=== PATIENT | female | born 1970 | race Caucasian/White ===

== ENCOUNTER → 2018-06-06 16:55 | Outpatient (CLI) | payer OTHER, SELFPAY ==
--- NOTE | 2018-06-06 17:05 | MRI_ITS ---
STUDY: MRI RIGHT FOREFOOT WITHOUT CONTRAST REASON FOR EXAM: Female, 48 years old. 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 Arthritis third MTP joint. Capsulitis. Evaluate third metatarsal. TECHNIQUE: Standardized fat and water weighted pulse sequences were obtained in all 3 orthogonal planes. COMPARISON: None. FINDINGS: There is a small joint effusion, otherwise negative metatarsophalangeal joint of the hallux. There is lateral subluxation of the sesamoids. The intersesamoid ligament is intact. Normal interphalangeal joint of the hallux. Normal proximal and distal phalanges of the great toe. Normal medial and lateral heads of the flexor hallucis brevis tendons. Normal flexor and extensor hallucis longus tendons. Intact Lisfranc ligament. There is a small joint effusion at the second metatarsophalangeal joint. There is abnormal signal and deformity of the third metatarsal head consistent with clinical history of avascular necrosis. The base of the third proximal phalanx is intact. There is no joint effusion. There is thickening of the medial and lateral ligaments. There is mild soft tissue signal intensity within the joint capsule. Metatarsals are otherwise unremarkable. Normal interphalangeal joints of the second through fifth toes. Normal proximal, middle and distal phalanges of the second through fifth toes. Normal first through fourth intermetatarsal spaces. Normal flexor and extensor tendons of the second through fifth toes. Normal intrinsic muscles of the forefoot. There is no demonstrated soft tissue abnormality. MRI/Lower Ext/No Jt/w/o IMPRESSION: Avascular necrosis of the third metatarsal head, with thickened ligaments and mild soft tissue within the joint capsule. Lateral subluxation of the sesamoid bones. Small effusions of the first and second MTP joints. Electronically Signed: Lexii Rae MD at 23:48 EST Tel , Service support ,
== END ==
PROVIDERS: Referring Provider Podiatrist; Visit Provider Podiatrist
DX: M79.671 Pain in right foot (principal); M92.71 Juvenile osteochondrosis of metatarsus, right foot; M87.9 Osteonecrosis, unspecified; M19.071 Primary osteoarthritis, right ankle and foot; M77.51 Other enthesopathy of right foot and ankle
CPT/HCPCS: 73718

== ENCOUNTER 2018-08-20 12:15 | Emergency (ER) | payer OTHER, SELFPAY ==
[2018-08-20 12:16] VITALS: BP 118/75; PULSE 83; RESP 18; TEMP 37.3; O2SAT 100; BMI 18.2
--- NOTE | 2018-08-20 12:48 | RAD_ITS ---
STUDY: X-RAY - RIGHT WRIST REASON FOR EXAM: Female, 48 years old. Fall TECHNIQUE: 3 view(s) of the wrist were obtained. COMPARISON: None. FINDINGS: There is no evidence of fracture or dislocation. There are no significant degenerative changes. There are no radiodense foreign bodies. RAD/Wrist min 3 Views IMPRESSION: No fracture or dislocation. Electronically Signed: Kimani Villanueva, at 13:16 EST Tel , Service support ,
--- NOTE | 2018-08-20 12:49 | ED.VISSUMM ---
- ER Visit Summary Date of Service: 08/20/18 Chief Complaint: Right wrist injury History of Present Illness: The patient is a 48 F right wrist injury 845 this morning while walking. Tripped over wires on the ground. No head injuries. 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 Has had fracture of the hand with no surgical intervention in the past followed by [facility] orthopedics. No deformities. There is abrasions to her palms and her right knee. Tetanus in the last 5 years. No head injuries. Able to ambulate. Physical Examination: General: Alert and oriented ?3, no acute distress HEENT: Normocephalic, atraumatic. Moist mucosa membranes Neck: supple, nontender. Cardiovascular: Regular rate and rhythm, no murmurs Respiratory: Normal breath sounds, symmetric, no distress Abdomen: Soft, nontender, nondistended Extremities: Nontender, no edema, pulses intact ?4. Right upper extremity: No deformities of the elbow forearm wrist or hand. Abrasions to bilateral palm and right knee. Neuro: no focal neurological deficits. Test Results: Right wrist x-ray: Negative Emergency Department Course and Treatment: Patient with no pain symptoms due to her congenital condition. There is no deformities, however due to injuries with fractures in the past x-ray obtained shows no acute fractures. Discussed contusion rice therapy. Monitor symptoms and follow-up with her PCP. All questions were answered. Treatment Plan: [] Disposition: Discharge Impression: 1. Right hand contusion 2. Abrasions This note was generated with Zuvvu dictation software. It may contain incorrect words, spelling, and punctuation that were not noted in review of the chart prior to signing ED Disposition - Plan for ED Patient: Disposition: Home or Assisted Living Diagnosis: Contusion of right hand, Multiple abrasions Instructions: ED Contusion Hand, ED Abrasion Referrals: [facility] Doctor,Out of [Primary Care Provider] - 5-7 Days
[2018-08-20 14:19] VITALS: PULSE 58; RESP 18; O2SAT 98; O2SAT 99
== END 2018-08-20 14:20 | disposition home or self-care (01) ==
PROVIDERS: Emergency Provider Emergency Medicine
DX: S60.221A Contusion of right hand, initial encounter (principal); S60.512A Abrasion of left hand, initial encounter; S60.511A Abrasion of right hand, initial encounter; S80.211A Abrasion, right knee, initial encounter; W18.09XA Striking against other object with subsequent fall, initial encounter; Y93.01 Activity, walking, marching and hiking; Y92.9 Unspecified place or not applicable; Y99.9 Unspecified external cause status
CPT/HCPCS: 73110; 99282; A4216

== ENCOUNTER → 2018-12-05 13:59 | Outpatient (CLI) | payer OTHER, SELFPAY ==
[2018-12-05 15:41] LABS: Absolute Lymphocyte Count 1.89 X10^3/ul (0.83-4.51); Basophil# 0.02 X10^3/uL; Basophil% 0.5 % (0-1); Eosinophil# 0.04 X10^3/uL; Eosinophils% 0.9 % (0-5); Hematocrit 41.9 % (37-47); Hemoglobin 13.6 g/dl (12.0-15.0); Lymphocyte # 1.89 X10^3/ul (4.0); Lymphocyte % 44.2 % (19-41); Mean Corp Hgb Conc 32.5 g/gl (32-36); Mean Corpuscular Hgb 28.6 pg (27.0-32.0); Mean Platelet Vol. 10.2 fl (6.2-12.0); Monocyte# 0.28 X10^3/uL; Monocyte% 6.5 % (0-10); Neutrophil # 2.04 X10^3/uL (2.7-7.7); Neutrophil % 47.7 % (47-70); Platelet Count 261 K/mm3 (150-450); RBC Distribution Width CV 14.1 % (11.6-14.6); RBC Distribution Width SD 45.4 fl (35.1-43.9); Red Blood Count 4.76 M/mm3 (4.2-5.4); White Blood Count 4.3 K/mm3 (4.4-11.0)
[2018-12-05 15:49] LABS: POSITIVE COUNT NO; POSITIVE DIFFERENTIAL NO; POSITIVE MORPHOLOGY NO
[2018-12-05 15:59] LABS: ALB/GLOB Ratio 1.3 RATIO (0.9-2.4); AST(SGOT) 26 U/L (15-37); Alanine Aminotransfer ALT/SGPT 34 U/L (13-56); Alkaline Phosphatase 51 U/L (45-117); Anion Gap 5 (5-15); BUN 10 mg/dL (7-18); Calcium,Total 8.8 mg/dL (8.5-10.1); Chloride 105 mmol/L (98-107); Creatinine, Serum 0.62 mg/dL (0.55-1.02); EST Glomerular Filtration Rate 108 mL/min (>60); Est Glom Filt Rate - Afr Amer 131 mL/min (>60); Glucose 82 mg/dL (74-106); Potassium 3.6 mmol/L (3.5-5.1); Sodium Level 139 mmol/L (136-145)
== END ==
PROVIDERS: Visit Provider Family Medicine
DX: Z01.818 Encounter for other preprocedural examination (principal)
CPT/HCPCS: 36415; 80053; 85025

== ENCOUNTER 2018-12-23 06:07 | Day surgery (SDC) | payer OTHER, SELFPAY ==
[2018-12-23] VITALS (7 sets, daily range): BP systolic 82–98; BP diastolic 55–73; PULSE 51–68; RESP 12–18; TEMP 36.1–36.6; O2SAT 48–100; BMI 18.9
[2018-12-23 06:47] LABS: Internal QC Validated? YES +Cl - CLEAR BKGD
[2018-12-23 06:48] LABS: Pregnancy, Urine Negative Negative
--- NOTE | 2018-12-23 07:45 | RAD_ITS ---
STUDY: X-RAY - RIGHT FOOT CLINICAL: Female, 48 years old. Resection of the third metatarsal head. TECHNIQUE: 5 on down intraoperative view(s) of the foot. COMPARISON: None. FINDINGS: Intraoperative imaging provided for resection of the head of the distal portion of the third metatarsal. A percutaneous pin is inserted at the third metatarsophalangeal joint. RAD/Foot min 3 Views IMPRESSION: Intraoperative imaging provided for resection of the third metatarsal head as well as percutaneous pinning of the third metatarsophalangeal joint. Electronically Signed: Tank Ramírez, at 12:27 EDT , Service support ,
[2018-12-23] MEDS: Cefazolin 2 GM in 0.9% Normal Saline 100 ML IV (07:47)
--- NOTE | 2018-12-23 08:00 | BON_PTH ---
PATIENT: LIZZETTE MIRANDA LOC: [facility] U#:[id number] AGE/SX: 48/F ROOM: RE12/23/[address]: Dr. Lashay Kapoor DPM : 1970 BED: DIS: 12/23/2018 SPEC #: [id number] RECD: 12/23/18 10:59 STATUS: SUSANAlfreda LINDSAY #: [id number] ESTRELLA: 12/23/18 08:[address]: Lashay Kapoor DEPT: SURGICAL PATHOLOGY RECD BY: Jennifer Del Angel Tissues: Bone of foot, NOS Procedures: Decalcification bone/plaque Surgery Specimen Level IV HEADER OPERATION: Third metatarsal head resection PRE-OP DIAGNOSIS: Metatarsal head avascular necrosis TISSUE SUBMITTED: Third metatarsal head MICROSCOPIC DIAGNOSIS Third metatarsal head, resection: A piece of bone with reactive changes. SJ:esha 12/28/18 COMMENT Case has been reviewed in consultation with Dr. Cummings who concurs with the above diagnosis. IDC:AM MICROSCOPIC DESCRIPTION Slides are reviewed. GROSS DESCRIPTION Received in fixative is one container labeled with the patient's name and designated third metatarsal head. The specimen consists of a piece of bone measuring 2 x 1.5 x 1 cm. The specimen is bisected and submitted entirely in one cassette after decalcification. / SJ:rg 12/23/18 TC:5 [facility]: [id number], [id number]
[2018-12-23] MEDS: Bupivacaine 0.5% PF 10 ML VIAL (08:04)
--- NOTE | 2018-12-23 09:23 | DCINST_ITS ---
Weight Bearing Status: No weight bearing - use crutches and surgical shoe right foot Keep extremity elevated above heart level: Right Leg Call your doctor if your incision/area has: Continuous Slow Oozing, Sudden Increased Bleeding, Increased Pain/ Swelling, Increased Redness, Foul Smelling Discharge, Swelling at the incision site Call your doctor if you observe: Fever of 101 or Higher, Numbness or Tingling, Swelling in the ankles, Calf discomfort, Uncontrolled pain Cleanse incision/area with: Keep Dressing Clean & Dry Allergies/Adverse Reactions: Allergies latex Allergy (Verified 12/16/18 13:41) Rash ciprofloxacin Adverse Reaction (Verified 12/16/18 13:41) Other WILL NOT TAKE D/T RUNNING/ATHLETE hydromorphone [From Dilaudid] Adverse Reaction (Verified 12/16/18 13:41) Vomiting Medications to take at Discharge Meloxicam [Mobic] 7.5 mg PO DAILY PRN 08/20/18 Ascorbic Acid [Vitamin C] 1,000 mg PO BID 12/16/18 Methylsulfonylmethane [MSM] 1,000 mg PO DAILY 12/16/18 Mv-Min/Iron/Folic/Calcium/Vitk [Women's Multivitamin Tablet] 1 ea PO DAILY 12/16/18 Turmeric Root Extract [Turmeric] 500 mg PO BID 12/16/18 Ubidecarenone [Coq-10] 200 mg PO DAILY 12/16/18 Vitamin B Complex [Complex B-100] 1 ea PO DAILY 12/16/18 Test Results: Test results from this visit will be discussed in further detail at your follow- up appointment, if applicable. Please Follow Up With: Lashay Kapoor DPM When: next [facility] Call [phone] sooner if concerns. Proposed Discharge Date: 12/23/18
--- NOTE | 2018-12-23 09:26 | OP.PCM_ITS ---
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 Arthritis right third metatarsal phalangeal joint. Post-Operative Diagnosis: Avascular necrosis of right third metatarsal head. Arthritis right third metatarsal phalangeal joint Surgery/Procedure Performed:: Third partial metatarsal head resection right foot with interpositional extensor apparatus placement Description of Surgical Findings:: Hemostasis: Well-padded pneumatic right ankle tourniquet, 22 minutes Materials: 2-0 Vicryl, 4-0 Monocryl, 5-0 nylon, one 0.045 K wire Complications: None The patient tolerated the procedure and anesthesia well. She was transported to the PACU with vital signs stable and vascular status intact the right lower extremity. She will be discharged home upon continued stability. Postoperative orders were entered electronically. outboard technician: none - Wired Music Operator: Izabela [email or web address]. Surgeon: Lashay Kapoor DPM Type of Anesthesia:: Local MAC - Preoperative injection: 10 cc of one-to-one mixture of 1% lidocaine plain and 0.5% Marcaine plain administering typical third ray block fashion of the right foot Specimen's removed: Third metatarsal head sent to pathology. Third metatarsal head sent to microbiology for aerobic, anaerobic, acid-fast, fungal Estimated Blood Loss (mL): < 50mL Description of Procedure: Indications: This is a 48-year-old female with history of avascular necrosis to her hip and wrist who was seen at the [facility] center for ongoing right foot pain, continues to have stiffness and discomfort. 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 She feels like she is walking on a firm marble and this changes her running pattern. She has tried conservative care including splinting, change in shoe gear, activity modification, rest, bone st imulator, and padding. X-rays demonstrate advanced flattening and degenerative changes and spurring to the third metatarsal phalangeal joint. MRI evaluation demonstrates decreased intensity on the T1 and T2 to most of the third metatarsal head. There is some edema noted around this area and there is also a crescent sign consistent with avascular necrosis. There are no associated other acute injuries at this location. She has decreased passive range of motion to the third metatarsal phalangeal joint and her pain is noted during running activities or prolonged standing. It is also noted she does have a chronic pain syndrome where she does not experience normal pain sensation. She typically experiences pain with nausea and vomiting. This makes it challenging for her to evaluate the status of her foot condition while training. The preoperative indication, planned procedure, possible benefits, risks, comp occasions, anticipated healing time and were discussed in detail with the shen jorgensen. She understands and elects to proceed with surgery at this time. No guarantees are made. She understands complications and risks include but are not limited to the following: Pain, swelling, scarring, floating toe, retraction of need for further surgery, loss of sensation, chronic pain, blood clot, allergic reaction, loss of limb, function, life. I answered her questions. The surgical limb and consent were signed. Procedure in detail: The patient was transferred to the operating room via cart and placed on the operating table in the supine position. Final verification of the patient, surgery, limb designation was performed via the timeout procedure. Anesthesia was initiated by the anesthesia team. Local anesthetic was administered by the podiatry team. A well-padded pneumatic right ankle tourniquet was placed. Preoperative antibiotics were administered according to standard protocol. Right lower extremity is prepped and draped in the usual aseptic manner. Exsanguination was performed with an Esmarch bandage and the tourniquet was inflated at this time. Surgery began following manner: Attention was first directed to the dorsal third right metatarsophalangeal joint level in which a curvilinear incision was made through the skin. Blunt dissection was next performed down to the third metatarsal phalangeal joint taking care to identify, protect, and retract all neurovascular and tendinous structures. A linear incision was next made through the third metatarsal phalangeal joint capsule to gain good exposure of the third metatarsal phalangeal joint. Care was taken to preserve all tendon and ligament attachments to the proximal phalanx base and is much as possible on the third metatarsal head as well. Next, a sagittal saw was utilized to perform a partial third metatarsal head resection. The amount of bone removed corresponded with the avascular necrosis zone seen on the MRI. After resection, the specimen was sent to microbiology and pathology. The tourniquet was deflated at this time and the resected metatarsal head was evaluated for healthy bleeding bone which was present. There were no local signs of infection or necrosis to the adjacent soft tissue structures, remaining metatarsal, or proximal phalanx. Care was taken to leave the plantar plate and flexor structures intact as well. A K wire was utilized to perform K wires drilling into the resected area to stimulate bleeding. Next a purse string suture technique was utilized to create an interpositional extensor cota spacer into the defect. The goal is to prevent toe retraction and to provide additional stability to the site. The K wire was next applied in a retrograde manner and was further advanced into the third metatarsal in a slightly overcorrected position. The plan is to remove this within the next 3 to 6 weeks. The dorsal aspect of the interpositional extensor cota procedure was next completed with Vicryl at this time. Saline irrigation was performed. Deep closure was completed with Monocryl. The skin was reapproximated utilizing horizontal mattress technique with a 5-0 nylon. The K wire was bent and a pin cap was placed. It is noted brisk capillary refill time was noted to all digits of the right foot and the toe is in the desired position radiographically and clinically. Postoperative x-rays were obtained with intraoperative fluoroscopy to confirm adequate resection of the third metatarsal head and proper K wire placement. No acute injuries were noted. A post operative dressing consisting of adaptic soaked in Betadine, 4 x 4 gauze, ker lix, and Edilson wrap were applied. After procedure: The patient tolerated the procedure anesthesia well. She was transported to the PACU with vital signs stable and vascular status intact to the right lower extremity. She will remain nonweightbearing with her surgical shoe in place. To use crutches for assistance until follow-up next week at the foot and ankle center. She was advised to keep her dressing clean, dry, and intact. She was provided with postoperative pain medication and advised on safe and proper use. She was advised to ice and elevate for pain and inflammation management. P ostoperative orders were entered electronically. Lashay Kapoor DPM, MERGED WITH [facility] - Complications none - Admit VTE Documentation VTE Present on Admission: No VTE Mechan Device Prophylaxis: SCD's VTE Pharm Prophylaxis ordered?: No Reason prophylaxis not ordered:: Treatment Not Indicated
== END 2018-12-23 10:54 | disposition home or self-care (01) ==
LOC: SDC 06:08 → AC 06:09
PROVIDERS: Anesthesiology; Visit Provider Podiatrist
PROC: (CPT 28112; principal; 2018-12-23 07:45)
DX: M87.074 Idiopathic aseptic necrosis of right foot (principal); Z79.899 Other long term (current) drug therapy
CPT/HCPCS: 28112; 73630; 76000; 81025; 87015; 87070; 87075; 87102; 87116; 87176; 87205; 87206; 88304; 88305; 88311; J7120; J2405

== ENCOUNTER 2019-08-03 21:07 | Emergency (ER) | payer OTHER, SELFPAY ==
[2018-12-23 06:37] VITALS: BMI 18.9
[2019-08-03 21:09] VITALS: BP 135/86; PULSE 71; RESP 18; TEMP 36.8; O2SAT 97; BMI 18.6
--- NOTE | 2019-08-03 21:20 | RAD_ITS ---
HISTORY: RIGHT FOOT AND ANKLE PAIN AFTER FALL COMPARISON: Fluoroscopic images of the right toes from December 23, 2018 FINDINGS: # of images incl. paperwork: 3 XR Foot Min 3 Views : Resection of the distal end of the third metatarsal is unchanged. Hallux valgus and metatarsus primus varus deformity may have progressed with a bunion on the medial aspect of the distal end of the first metatarsal. Shortening to the third digit has progressed. No acute fracture or subluxation. No acute osseous or soft tissue abnormality. . No radiopaque foreign body is seen. RAD/Foot min 3 Views IMPRESSION: Worsening hallux valgus and metatarsus primus varus deformity. Chronic changes after resection of the distal end of the third metatarsal persist. No acute fracture or dislocation perceived at 2150 Reported and signed by: Michael Jamil MD Electronically Signed: Michael Jamil MD at 21:49 EST Tel , Service support ,
--- NOTE | 2019-08-03 21:25 | RAD_ITS ---
HISTORY: RIGHT FOOT AND ANKLE PAIN AFTER FALL COMPARISON: None FINDINGS: # of images incl. paperwork: 3 XR Ankle Min 3 Views : No fracture or osseous abnormality. The ankle mortise is intact. Soft tissue swelling is is present about the ankle, greater laterally than medially. RAD/Ankle min 3 Views IMPRESSION: Lateral soft tissue swelling about the right ankle. at 2148 Reported and signed by: Michael Jamil MD Electronically Signed: Michael Jamil MD at 21:47 EST Tel , Service support ,
--- NOTE | 2019-08-03 21:53 | ED.DCSUM_ITS ---
History of Present Illness Chief Complaint: Lower Extremity Injury Informant: Patient Onset: Today Context: Sudden Onset Timing: Continuous Current Severity: Moderate Maximum Severity: Moderate Narrative: The patient presents to the emergency department with right ankle pain. The patient has a genetic disorder where she cannot feel pain. 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 She was running today, stepped on a rock, twisted her ankle. Since then, she has had swelling over the lateral aspect of the ankle. She was nauseated which she states is what happens when she has something that would cause pain. She has had prior surgery on the foot with Dr. young. Prior similar symptoms: No Recent Illness/Hospitalization: No Past Medical History - Allergies and Home Meds Allergies/Adverse Reactions: Allergies latex Allergy (Verified 08/03/19 21:11) Rash ciprofloxacin Adverse Reaction (Verified 08/03/19 21:11) Other WILL NOT TAKE D/T RUNNING/ATHLETE hydromorphone [From Dilaudid] Adverse Reaction (Verified 08/03/19 21:11) Vomiting Primary Care Physician: Lashay Kapoor DPM [STAFF PHYSICIAN] - Prior records reviewed: Yes Past Medical History: - Surgical History: - - Foot surgery Smoking Status: Never smoker Review of Systems General: Denies: Chills, Fever, Sweats Eyes: Denies: Visual changes - bilaterally, Diplopia ENT: Denies: Rhinorrhea, Sore throat Cardiovascular: Denies: Chest pain, Palpitations Respiratory: Denies: Dyspnea, Cough, Dyspnea on exertion Gastrointestinal: Denies: Abdominal pain, Nausea, Vomiting, Diarrhea, Melena, Hematochezia Genitourinary: Denies: Dysuria, Hematuria, Frequency Musculoskeletal: Denies: Back pain, Extremity Pain Skin: Denies: Rash, Wounds Neurological: Denies: Headache, Weakness, Numbness Physical Exam Vital Signs/Narrative: Vital Signs Temp Pulse Resp BP Pulse Ox 08/03/19 21:09 98.3 F 71 18 135/86 H 97 Inital Vital Signs reviewed: Yes General: Well nourished, Well developed, No Acute Distress Head: Normocephalic, Atraumatic Eyes: Perrl, EOMI ENT: Moist mucous membranes, No rhinorrhea Neck: Supple, Nontender Cardiovascular: Regular rate, Regular rhythm, No murmurs Respiratory: No distress, CTA bilaterally, Chest nontender Abdomen: Soft, Nontender, Nondistended, Normal bowel sounds Back: Nontender, Normal Inspection Extremities: No edema, Tenderness - swelling over lateral mal, no laxity, normal pusles, freeman negative Skin: Normal color, No rash Neurological: Alert, Oriented x3, Cranial nerves II-XII grossly intact, Normal Strength, Normal Sensation Psychological: Normal affect, Normal Mood Diagnostic/Tx/Re-eval Clinical Impression(s) from Imaging Studies Foot X-Ray 08/03/19 21:20 IMPRESSION: Worsening hallux valgus and metatarsus primus varus deformity. Chronic changes after resection of the distal end of the third metatarsal persist. No acute fracture or dislocation perceived at 2150 Reported and signed by: Michael Jamil MD Electronically Signed: Michael Jamil MD at 21:49 EST Tel , Service support , Ankle X-Ray 08/03/19 21:25 IMPRESSION: Lateral soft tissue swelling about the right ankle. at 2148 Reported and signed by: Michael Jamil MD Electronically Signed: Michael Jamil MD at 21:47 EST Tel , Service support , - Medical Decision Making The patient presents with right ankle swelling after injury. She has very minimal pain but is nauseated. She was given Zofran and analgesics. X-rays were obtained. This showed no evidence of acute fracture. I do suspect she may have underlying ligamentous injury given the swelling and the fact that she had a pop. At this point, I do think she is safe to follow-up with podiatry. She does have a boot and will continue crutches. She is comfortable with this plan of care. Impression 1. Right ankle sprain ED Disposition - Plan for ED Patient: Disposition: Home or Assisted Living Instructions: Sprain, Ankle, with X-Ray Prescriptions: Hydrocodone Bitart/Apap 5-325 [[place] 5MG-325MG] 1 tab PO Q6H PRN PRN 3 Days #10 tab PRN Reason: Pain Prescription Printed Ondansetron [Zofran Odt] 4 mg PO Q8H PRN PRN #10 tab PRN Reason: Nausea Prescription Printed Referrals: Lashay Kapoor DPM [STAFF PHYSICIAN] -
[2019-08-03] MEDS: HYDROcodone Bitartrate/Apap 5/325 Tablet PO (22:10)
[2019-08-03] MEDS: Ondansetron ODT 4 MG Tablet PO (22:10)
== END 2019-08-03 22:23 | disposition home or self-care (01) ==
LOC: ED 21:47
PROVIDERS: Emergency Provider Emergency Medicine
DX: S93.401A Sprain of unspecified ligament of right ankle, initial encounter (principal); X50.1XXA Overexertion from prolonged static or awkward postures, initial encounter; Y93.02 Activity, running; Y92.9 Unspecified place or not applicable
CPT/HCPCS: 73610; 73630; 99282

== ENCOUNTER 2020-04-13 12:32 | Emergency (ER) | payer OTHER, SELFPAY ==
[2020-04-13 12:33] VITALS: BP 118/71; PULSE 82; RESP 17; TEMP 35.8; O2SAT 100; BMI 18.1
--- NOTE | 2020-04-13 12:42 | RAD_ITS ---
STUDY: X-RAY - RIGHT ANKLE REASON FOR EXAM: Female, 49 years old. injured while running today TECHNIQUE: 3 view(s) of the ankle. COMPARISON: None. FINDINGS: Normal visualized distal tibia and fibula. Normal medial and lateral malleoli. Normal tibiotalar articulation and ankle mortise. Normal visualized talus and calcaneus. The visualized subtalar, talonavicular, calcaneocuboid and tarsal articulations are normal. There is lateral ankle soft tissue swelling. RAD/Ankle min 3 Views IMPRESSION: Lateral ankle soft tissue swelling without demonstrated fracture. Electronically Signed: Kev Romo MD (Brooks) at 13:36 EDT , Service support ,
--- NOTE | 2020-04-13 12:52 | ED.DCSUM_ITS ---
- ER Visit Summary Date of Service: 04/13/20 Chief Complaint: Right ankle pain History of Present Illness: The patient is a 49 F complaining of right ankle pain. She says her ankle either dislocates or sublux and she usually reduces her self. She is never coming to the emergency department to have it reduced by physician. She runs ultra marathons. 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 She was actually running today and felt pain in her right ankle and thinks that its either dislocated or partially subluxed. She states she is unable to get her normal range of motion back. She also has some tingling in her toes. Physical Examination: Well-appearing middle-aged female. No acute distress. Vital signs stable afebrile. H EENT exam unremarkable. Lungs are clear. Heart regular rhythm. No murmur. Abdomen soft nontender. Extremities moves all 4. Right hip right knee nontender nonswollen normal range of motion. Right ankle she has limited dorsi and plantar flexion. There is mild swelling to the right lateral malleolus. Medial malleolus is nontender. She is a very strong DP pulse. There is no gross bony deformity. Midfoot and toes are nontender. Most of her toenails have fallen off in the past from her running. She has cap refill and touch sensation to most of her toes except for the middle toe. 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 Skin is intact. Test Results: Right ankle x-ray 3 views read by myself and the radiologist shows no acute abnormality except for some mild right lateral malleolus soft tissue swelling. No fracture or dislocation. No signs of subluxation.. I did go over the films with the patient. Emergency Department Course and Treatment: She requested some Zofran for nausea. She was given p.o. Zofran. Treatment Plan: Repeat exam she is doing well. She will be discharged to home. Elevated decrease pain and swelling. Tylenol Motrin for pain. Follow-up with not improving. Disposition: discharge Impression: Acute right ankle sprain This note was generated with [employer] dictation software. It may contain incorrect words, spelling, and punctuation that were not noted in review of the chart prior to signing ED Disposition - Plan for ED Patient: Referrals: [facility] Doctor,Out of [NON-STAFF] -
[2020-04-13] MEDS: Ondansetron 8 MG Tablet PO (12:55)
--- NOTE | 2020-04-13 13:53 | DCINST.ED_ITS ---
ED Disposition - Plan for ED Patient: Disposition: Home or Assisted Living Instructions: ED Sprain Ankle W X Ray Referrals: [facility] Doctor,Out of [NON-STAFF] - 1 Week if not improving Additional Instructions: Ice and elevate your ankle to decrease pain and swelling. Your x-rays did not show any fracture nor any type of dislocation at this time. Tylenol Motrin for pain and swelling. Follow-up with your doctor if not improving. I would take it easy over the next several days wait for the pain and swelling no improvement and slowly increase your activity as tolerated.
== END 2020-04-13 14:09 | disposition home or self-care (01) ==
PROVIDERS: Emergency Provider Emergency Medicine; PCP Student in an Organized Health Care Education/Training Program
DX: S93.401A Sprain of unspecified ligament of right ankle, initial encounter (principal); X58.XXXA Exposure to other specified factors, initial encounter; Y93.02 Activity, running; Y92.9 Unspecified place or not applicable; Y99.8 Other external cause status
CPT/HCPCS: 73610; 99282

== ENCOUNTER 2020-08-17 17:49 | Emergency (ER) | payer OTHER, SELFPAY ==
[2020-08-17 17:51] VITALS: BP 120/76; PULSE 66; RESP 15; TEMP 36.7; O2SAT 100; BMI 20.4
--- NOTE | 2020-08-17 18:10 | ED.VISSUMM ---
- ER Visit Summary Date of Service: 08/17/20 Chief Complaint: [Injury to left ring finger] History of Present Illness: The patient is a 50 F [presents to the emergency department with an injury to her left ring finger. Patient states that she was on a trail run this morning when she fell and landed awkwardly on her left hand. Patient now with a distal phalanx that held in flexion and she is unable to extend it. Patient is right hand dominant. She denies any other injuries. Patient has history of congenital AVMs.] Physical Examination: [HEENT-PERRLA, EOMI. Cranial nerves II through XII grossly intact. TMs clear. Mucous membranes moist. No adenopathy. Cardiovascular-regular rate and rhythm without murmur or ectopy Lungs-clear to auscultation, chest wall stable without crepitus or subcu emphysema Abdomen-normoactive bowel sounds, soft, nontender, no rebound or rigidity, no peritoneal signs. Extremities-intact ?4, normal range of motion, normal pulses, atraumatic. Left hand-evaluation of the left ring finger reveals that the distal phalanx is held in flexion and she is unable to extend the DIP. I am able to freely move the distal phalanx in flexion and extension and it does not appear dislocated. Neurovascular intact.] Test Results: [3 views x-rays of left ring finger obtained interpreted by myself as no acute fractures or dislocations.] Radiology read x-ray as hyper flexion of the fourth PIP joint no demonstrated fracture. Emergency Department Course and Treatment: [Patient was placed in aluminum splint in exaggerated extension.] Treatment Plan: [Patient will be referred to for follow-up as I suspect she likely has an extensor tendon rupture.] Patient is advised not to remove the splint. Patient will be given a prescription for few [place] and Zofran. Disposition: [Discharged home in stable condition] Impression: [Left ring finger extensor tendon rupture] This note was generated with [employer] dictation software. It may contain incorrect words, spelling, and punctuation that were not noted in review of the chart prior to signing ED Disposition - Plan for ED Patient: Referrals: [facility] Doctor,Out of [Primary Care Provider] -
--- NOTE | 2020-08-17 18:16 | RAD_ITS ---
EXAM: XR LEFT FINGERS, 2 OR MORE VIEWS CLINICAL INDICATION: injury TECHNIQUE: Frontal, lateral and oblique views of the fingers of the left hand. This report was created using [employer] report generation technology. COMPARISON: None. FINDINGS: BONES/JOINTS: Hyperflexion of the fourth PIP joint. No demonstrated fracture. No sclerotic or destructive changes observed. SOFT TISSUES: No soft tissue swelling or gas. No radiopaque foreign body. RAD/Finger(s) Min 2 Views IMPRESSION: Hyperflexion of the fourth PIP joint. No demonstrated fracture. Electronically Signed: Kev Romo MD ([place]) at 18:36 EST , Service support ,
--- NOTE | 2020-08-17 18:39 | DCINST.ED_ITS ---
ED Disposition - Plan for ED Patient: Instructions: ED Tendon Rupture, Finger Prescriptions: Hydrocodone Bitart/Apap 5-325 [[place] 5MG-325MG] 1 tablet PO Q4H PRN PRN 2 Days #10 tablet PRN Reason: Pain Transmission Status: Sent to [facility] Ondansetron [Zofran Odt] 4 mg PO Q8H PRN PRN #10 tab PRN Reason: Nausea Transmission Status: Pending to [facility] Referrals: [facility] Doctor,Out of [Primary Care Provider] - Nile Cordero MD [STAFF PHYSICIAN] - 3-5 Days
[2020-08-17 18:54] VITALS: PULSE 67; RESP 17; O2SAT 100
== END 2020-08-17 18:55 | disposition home or self-care (01) ==
LOC: ED 18:54
PROVIDERS: Emergency Provider Emergency Medicine; PCP Student in an Organized Health Care Education/Training Program
DX: S66.315A Strain of extensor muscle, fascia and tendon of left ring finger at wrist and hand level, initial encounter (principal); W19.XXXA Unspecified fall, initial encounter; Y93.02 Activity, running; Y92.89 Other specified places as the place of occurrence of the external cause; Y99.8 Other external cause status
CPT/HCPCS: 73140; 99283